=== PATIENT | female | born 1950 | race Caucasian/White ===

== ENCOUNTER 2020-11-03 15:31 | Observation (INO) | payer MEDICARE, OTHER ==
[~2020-11-03] VITALS: Ht 152.4 cm; Wt 54.4 kg
[2020-11-03 16:07] LABS: HEMOGLOBIN 12.7 gm/dl (12.3-15.3); RED BLOOD COUNT 4.24 M/UL (4.00-5.10); WHITE BLOOD COUNT 7.5 K/UL (4.5-11.0)
[2020-11-03 16:32] LABS: BUN/CREATININE RATIO 19 (0-10)
[2020-11-03] MEDS ORDERED: LOSARTAN-HCTZ1 EACH PO (20:33)
[2020-11-03] MEDS ORDERED: DAILY VIT FORM1 EACH PO (20:34)
[2020-11-03] MEDS ORDERED: VITAMIN C500 M4 PO (20:34)
[2020-11-03] MEDS ORDERED: ZINC30 M1 PO (20:35)
[2020-11-04 06:24] LABS: HEMOGLOBIN 12.3 gm/dl (12.3-15.3); RED BLOOD COUNT 4.19 M/UL (4.00-5.10)
[2020-11-04 06:25] LABS: WHITE BLOOD COUNT 5.1 K/UL (4.5-11.0)
[2020-11-04 06:54] LABS: BUN/CREATININE RATIO 15 (0-10)
[2020-11-04] MEDS ORDERED: PRAVASTATIN SOD20 MG PO (09:49)
== END 2020-11-04 16:42 | disposition home or self-care (01) ==
LOC: ER1 15:31 → MED SURG 4 18:39 → CDU 18:39 → MED SURG 4 21:55
PROVIDERS: Emergency Medicine; ADMIT Internal Medicine
DX: R07.9 Chest pain, unspecified (principal); R68.84 Jaw pain; R73.9 Hyperglycemia, unspecified; M79.602 Pain in left arm; I10 Essential (primary) hypertension; E78.5 Hyperlipidemia, unspecified; Z20.822 Contact with and (suspected) exposure to COVID-19; Z88.0 Allergy status to penicillin; Z79.899 Other long term (current) drug therapy
CPT/HCPCS: 36415; 71045; 78452; 80048; 80053; 80061; 82550; 82553; 83036; 83880; 84484; 85025; 85027; 85610; 85730; 93005; 93017; 99285; A9502; G0378; J2785; U0002